=== PATIENT | male | born 1950 | race Caucasian/White ===

== ENCOUNTER → 2017-05-18 | Outpatient (CLI) | payer OTHER ==
[~2017-05-18] VITALS: Ht 165.1 cm; Wt 101.8 kg
[~2017-05-18] MED LIST: AMLODIPINE BESYL5 MG PO; ASPIR LOW81 MG PO; HCTZ 25MG25 MG PO; LISINOPRIL20 MG PO
[2017-05-18 13:50] VITALS: BP 122/73
== END ==
LOC: AMSURD 13:18
DX: I49.9 Cardiac arrhythmia, unspecified (principal)

== ENCOUNTER → 2018-03-01 | Outpatient (CLI) | payer BC ==
[2017-05-18 13:50] VITALS: BP 122/73
[2018-03-01 11:20] LABS: BUN/CREATININE RATIO 12.7 (6.0-26.0); CALCIUM 9.1 mg/dL (8.4-10.2); POTASSIUM 3.9 mmol/L (3.6-5.0)
== END ==
LOC: LAB 10:51
PROVIDERS: Internal Medicine Cardiovascular Disease
DX: Z51.81 Encounter for therapeutic drug level monitoring (principal); Z79.899 Other long term (current) drug therapy